=== PATIENT | female | born 1995 | race Two or more races ===

== ENCOUNTER 2020-12-19 10:56 | Observation (INO) | payer MEDICAID | END 2020-12-19 12:40 | disposition home or self-care (01) | LOC: LDRP 10:56 | PROVIDERS: ADMIT Specialist; ATTEND Specialist | DX: O36.5930 Maternal care for other known or suspected poor fetal growth, third trimester, not applicable or unspecified (principal); Z3A.35 35 weeks gestation of pregnancy | CPT/HCPCS: 59025; 76818; 81002; G0378 ==

== ENCOUNTER 2020-12-23 07:50 | Observation (INO) | payer MEDICAID ==
[2020-12-23] MEDS ORDERED: FERR28TA2 PO (09:02)
[2020-12-23] MEDS ORDERED: PREN-96 PO (09:02)
== END 2020-12-23 09:25 | disposition home or self-care (01) ==
LOC: LDRP 07:50
PROVIDERS: ADMIT Obstetrics & Gynecology; ATTEND Obstetrics & Gynecology
DX: O36.5930 Maternal care for other known or suspected poor fetal growth, third trimester, not applicable or unspecified (principal); Z3A.35 35 weeks gestation of pregnancy
CPT/HCPCS: 59025; 76818; 81002; G0378

== ENCOUNTER 2020-12-26 16:31 | Observation (INO) | payer MEDICAID ==
[~2020-12-26 16:31] MED LIST: FERR28TA2 PO; PREN-96 PO
== END 2020-12-27 15:03 | disposition home or self-care (01) ==
LOC: LDRP 12-27 14:19
PROVIDERS: ADMIT Obstetrics & Gynecology; ATTEND Obstetrics & Gynecology
DX: O36.5930 Maternal care for other known or suspected poor fetal growth, third trimester, not applicable or unspecified (principal); O99.323 Drug use complicating pregnancy, third trimester; F12.90 Cannabis use, unspecified, uncomplicated; Z3A.35 35 weeks gestation of pregnancy
CPT/HCPCS: 59025; 76818; 81002; 94760; G0378

== ENCOUNTER 2020-12-30 10:00 | Observation (INO) | payer MEDICAID | END 2020-12-30 11:30 | disposition home or self-care (01) | LOC: LDRP 10:00 | PROVIDERS: ADMIT Obstetrics & Gynecology; ATTEND Obstetrics & Gynecology | DX: O36.5930 Maternal care for other known or suspected poor fetal growth, third trimester, not applicable or unspecified (principal); Z3A.36 36 weeks gestation of pregnancy | CPT/HCPCS: 59025; 76818; 81002; G0378 ==

== ENCOUNTER 2021-01-02 13:40 | Observation (INO) | payer MEDICAID | END 2021-01-02 14:36 | disposition home or self-care (01) | LOC: LDRP 13:40 | PROVIDERS: ADMIT Obstetrics & Gynecology; ATTEND Obstetrics & Gynecology | DX: O36.5930 Maternal care for other known or suspected poor fetal growth, third trimester, not applicable or unspecified (principal); Z3A.37 37 weeks gestation of pregnancy | CPT/HCPCS: 59025; 76818; 81002; 94760; G0378 ==

== ENCOUNTER 2021-01-05 08:53 | Observation (INO) | payer MEDICAID ==
[~2021-01-05] VITALS: Ht 154.9 cm; Wt 73.9 kg
== END 2021-01-05 10:43 | disposition home or self-care (01) ==
LOC: LDRP 08:53
PROVIDERS: ADMIT Specialist; ATTEND Specialist
DX: O36.5930 Maternal care for other known or suspected poor fetal growth, third trimester, not applicable or unspecified (principal); Z3A.37 37 weeks gestation of pregnancy
CPT/HCPCS: 59025; 76818; 81002; 94760; G0378

== ENCOUNTER 2021-01-06 15:04 | Observation (INO) | payer MEDICAID | END 2021-01-08 09:25 | disposition home or self-care (01) | LOC: LDRP 01-08 08:15 | PROVIDERS: ADMIT Specialist; ATTEND Specialist | DX: O36.5930 Maternal care for other known or suspected poor fetal growth, third trimester, not applicable or unspecified (principal); Z79.899 Other long term (current) drug therapy; Z3A.38 38 weeks gestation of pregnancy | CPT/HCPCS: 59025; 76818; 81002; 82948; G0378 ==

== ENCOUNTER 2021-01-15 11:23 | Outpatient (CLI) | payer MEDICAID | END 2021-01-15 12:30 | disposition home or self-care (01) | LOC: UNDOADMOB 11:23 → XYW 11:23 → LDRP 11:23 → UNDODISOB 12:00 → XYW 12:30 → EDSTATUS 13:03 | PROVIDERS: ATTEND Obstetrics & Gynecology | DX: Z34.80 Encounter for supervision of other normal pregnancy, unspecified trimester (principal); Z3A.00 Weeks of gestation of pregnancy not specified | CPT/HCPCS: 76818; G0378 ==